=== PATIENT | female | born 2000 | race Caucasian/White ===

== ENCOUNTER 2023-07-10 07:19 | Emergency (ER) | payer MEDICAID ==
[~2023-07-10] VITALS: Ht 160 cm; Wt 59.0 kg
[2023-07-10 07:31] VITALS: BP 105/59; PULSE 72; RESP 19; TEMP 98; O2SAT 99
[2023-07-10] MEDS ORDERED: DIPHENHYDRAMINE 50MG CAPSULE PO ONE (08:15)
[2023-07-10] MEDS ORDERED: DIPH25CA83 PO (09:03)
== END 2023-07-10 09:17 | disposition home or self-care (01) ==
LOC: ER 07:19
DX: H57.13 Ocular pain, bilateral (principal); T78.40XA Allergy, unspecified, initial encounter; X58.XXXA Exposure to other specified factors, initial encounter
CPT/HCPCS: 99282; Q0163

== ENCOUNTER 2023-11-13 11:34 | Emergency (ER) | payer MEDICAID, OTHER ==
[~2023-11-13] VITALS: Ht 160 cm; Wt 59.0 kg
[~2023-11-13 11:34] MED LIST: DIPH25CA83 PO
[2023-11-13 12:02] VITALS: TEMP 98.8; O2SAT 98
[2023-11-13] MEDS ORDERED: IBUPROFEN 600MG TABLET PO ONE (12:15)
[2023-11-13 15:04] VITALS: BP 118/62; PULSE 92; RESP 19
== END 2023-11-13 15:11 | disposition home or self-care (01) ==
LOC: ER 11:34
DX: B34.9 Viral infection, unspecified (principal); Z20.822 Contact with and (suspected) exposure to COVID-19
CPT/HCPCS: 81025; 87426; 87804; 99283

== ENCOUNTER 2024-07-11 13:45 | Emergency (ER) | payer MEDICAID ==
[~2024-07-11] VITALS: Ht 157.5 cm; Wt 52.1 kg
[2024-07-11 14:07] VITALS: O2SAT 99
[2024-07-11] MEDS: METOCLOPRAMIDE HCL 10MG/2ML VIAL IV STA (14:36)
[2024-07-11] MEDS: SODIUM CHLORIDE 0.9% 1,000 ML IV ONE (14:45)
[2024-07-11 14:49] LABS: CLARITY URINE CLOUDY (CLEAR); COLOR URINE YELLOW (YELLOW); GLUCOSE URINE NEGATIVE (NEGATIVE); KETONES URINE 3+ (NEGATIVE); LEUKOCYTE ESTERASE URINE 2+ (NEGATIVE); NITRITE URINE NEGATIVE (NEGATIVE); OCCULT BLOOD URINE NEGATIVE (NEGATIVE); PROTEIN URINE TRACE (NEGATIVE)
[2024-07-11 15:02] LABS: BACTERIA URINE 2+; SQUAMOUS EPITHELIAL CELL URINE 3+ /lpf (RARE/1+); YEAST URINE NONE SEEN
[2024-07-11 15:06] LABS: BASOPHILS % 0.5 % (0.0-2.0); EOSINOPHILS % 0.3 % (0.0-5.0); HEMATOCRIT. 35.3 % (36.0-48.0); HEMOGLOBIN. 11.5 g/dL (12.0-16.0); LYMPHOCYTES % 18.3 % (20.0-50.0); MEAN CORPUSCULAR HEMOGLOBIN 26.9 pg (28.0-32.0); MEAN CORPUSCULAR HGB CONC 32.7 g/dL (31.0-37.0); MEAN CORPUSCULAR VOLUME 82.3 fL (81.0-99.0); MEAN PLATELET VOLUME 7.1 fl (7.4-10.4); MONOCYTES % 7.3 % (2.0-8.0); NEUTROPHILS % 73.6 % (40.0-76.0); PLATELET 423 x1000/uL (130-400); RED BLOOD CELL COUNT 4.28 mill/uL (4.2-5.4); RED CELL DISTRIBUTION WIDTH 16.1 % (11.6-14.6); WHITE BLOOD COUNT 8.4 x1000/uL (4.5-11.0)
[2024-07-11 15:10] LABS: CHLORIDE 105 mEq/L (98-107); POTASSIUM 3.8 mEq/L (3.5-5.1); SODIUM 134 mEq/L (136-145)
[2024-07-11 15:11] LABS: CARBON DIOXIDE 23 mEq/L (21-32)
[2024-07-11 15:12] LABS: CALCIUM 9.6 mg/dL (8.7-10.4)
[2024-07-11 15:16] LABS: CREATININE 0.6 mg/dL (0.6-1.0)
[2024-07-11 15:17] LABS: GLUCOSE 78 mg/dL (70-105); UREA NITROGEN BLOOD 10 mg/dL (9-23)
[2024-07-11 15:46] LABS: ALBUMIN 4.6 g/dL (3.2-4.8); B-HCG QUANTITATIVE 124612 mIU/mL (<3); PROTEIN TOTAL 7.8 g/dL (6.0-8.3)
[2024-07-11 15:47] LABS: ALANINE AMINOTRANSFERASE 12 IU/L (10-49); ASPARTATE AMINOTRANSFERASE 16 IU/L (<34); BILIRUBIN DIRECT 0.1 mg/dL (<=3.0); BILIRUBIN TOTAL 0.6 mg/dL (0.1-1.0)
[2024-07-11] MEDS: DIPHENHYDRAMINE 50MG/ML VIAL IV ONE (16:32)
[2024-07-11] MEDS ORDERED: CEPH500T MT (16:32)
[2024-07-11] MEDS ORDERED: DOXY1TAB3 MT (16:32)
[2024-07-11] MEDS: CEFTRIAXONE 1GM/50ML 50 ML IV ONE (16:51)
[2024-07-11 18:05] VITALS: BP 100/62; PULSE 85; RESP 18; TEMP 36.89184; O2SAT 99
== END 2024-07-11 18:09 | disposition home or self-care (01) ==
LOC: ER 13:45
DX: R11.2 Nausea with vomiting, unspecified (principal); R10.2 Pelvic and perineal pain; R51.9 Headache, unspecified
CPT/HCPCS: 80076; 80048; 81003; 84702; 83690; 85025; 36415; 96361; 96365; 96375; 99284; J0696; J1200; J2765; J7030; Z7610

== ENCOUNTER 2024-07-17 06:51 | Emergency (ER) | payer MEDICAID ==
[~2024-07-17] VITALS: Ht 160 cm; Wt 51.0 kg
[~2024-07-17 06:51] MED LIST changes: +CEPH500T MT; +DOXY1TAB3 MT
[2024-07-17 07:07] VITALS: O2SAT 100
[2024-07-17] MEDS ORDERED: DOXY1TAB6 PO (07:34)
[2024-07-17] MEDS ORDERED: NITR100C PO (07:34)
[2024-07-17] MEDS: ONDANSETRON HCL 4MG TABLET PO ONE (08:07)
[2024-07-17 08:08] LABS: BASOPHILS % 0.3 % (0.0-2.0); CHLORIDE 105 mEq/L (98-107); EOSINOPHILS % 3.3 % (0.0-5.0); HEMATOCRIT. 35.1 % (36.0-48.0); HEMOGLOBIN. 11.9 g/dL (12.0-16.0); LYMPHOCYTES % 16.8 % (20.0-50.0); MEAN CORPUSCULAR HEMOGLOBIN 27.8 pg (28.0-32.0); MEAN CORPUSCULAR HGB CONC 33.9 g/dL (31.0-37.0); MEAN CORPUSCULAR VOLUME 81.9 fL (81.0-99.0); MEAN PLATELET VOLUME 7.2 fl (7.4-10.4); MONOCYTES % 8.1 % (2.0-8.0); NEUTROPHILS % 71.5 % (40.0-76.0); PLATELET 359 x1000/uL (130-400); POTASSIUM 3.6 mEq/L (3.5-5.1); RED BLOOD CELL COUNT 4.29 mill/uL (4.2-5.4); RED CELL DISTRIBUTION WIDTH 16.1 % (11.6-14.6); SODIUM 137 mEq/L (136-145); WHITE BLOOD COUNT 7.4 x1000/uL (4.5-11.0)
[2024-07-17 08:09] LABS: CALCIUM 9.8 mg/dL (8.7-10.4); CARBON DIOXIDE 24 mEq/L (21-32)
[2024-07-17 08:11] LABS: CLARITY URINE TURBID (CLEAR); COLOR URINE DARK YELLOW (YELLOW); GLUCOSE URINE NEGATIVE (NEGATIVE); KETONES URINE 1+ (NEGATIVE); LEUKOCYTE ESTERASE URINE 1+ (NEGATIVE); NITRITE URINE NEGATIVE (NEGATIVE); OCCULT BLOOD URINE NEGATIVE (NEGATIVE); PROTEIN URINE 1+ (NEGATIVE)
[2024-07-17 08:14] LABS: CREATININE 0.7 mg/dL (0.6-1.0); GLUCOSE 87 mg/dL (70-105); UREA NITROGEN BLOOD 9 mg/dL (9-23)
[2024-07-17 08:16] LABS: BILIRUBIN TOTAL 0.4 mg/dL (0.1-1.0)
[2024-07-17 08:30] LABS: SQUAMOUS EPITHELIAL CELL URINE 3+ /lpf (RARE/1+)
[2024-07-17 08:31] LABS: RBC URINE 0-2 /hpf (0-2)
[2024-07-17 08:31] LABS: B-HCG QUANTITATIVE 136094 mIU/mL (<3)
[2024-07-17 08:33] LABS: BACTERIA URINE 3+
[2024-07-17 08:35] LABS: ALANINE AMINOTRANSFERASE 7 IU/L (10-49); ASPARTATE AMINOTRANSFERASE 14 IU/L (<34)
[2024-07-17 08:36] LABS: ALBUMIN 4.7 g/dL (3.2-4.8); BILIRUBIN DIRECT < 0.3 mg/dL (<=3.0)
[2024-07-17 09:03] VITALS: BP 115/68; PULSE 84; RESP 18; TEMP 37.11408; O2SAT 100
== END 2024-07-17 09:17 | disposition home or self-care (01) ==
LOC: ER 06:51
DX: R11.2 Nausea with vomiting, unspecified (principal)
CPT/HCPCS: 99283; 80076; 80048; 81003; 84702; 83690; 85025; 36415; Q0162